=== PATIENT | female | born 1995 | race Caucasian/White ===

== ENCOUNTER 2017-05-30 12:03 | Emergency (ER) | payer MEDICAID ==
[2017-05-30 12:09] VITALS: BP 108/48
--- NOTE | 2017-05-30 12:23 | EDM.PDOC ---
ED HPI GENERAL MEDICAL PROBLEM - General Chief Complaint: General Stated Complaint: head pressure/nausea Time Seen by Provider: 05/30/17 12:10 Source of Information: Reports: Patient History Limitations: Reports: No Limitations - History of Present Illness Onset: Sudden Duration: Day(s): Location: Reports: Head, Face Quality: Reports: Pressure Severity: Moderate Improves with: Reports: None Worsens with: Reports: None Context: Reports: Sick Contact Associated Symptoms: Reports: No Other Symptoms Treatments CONSTRUCTION ESTIMATOR: Reports: Acetaminophen Face Pain Score (Numeric/FACES): 8 - Related Data Allergies Allergy/AdvReac Type Severity Reaction Status Date / Time No Known Allergies Allergy Verified 05/30/17 12:09 Home Meds: Home Meds . [No Known Home Meds] 05/30/17 [History] Past Medical History HEENT History: Reports: Impaired Vision, Other (See Below) Other HEENT History: Wears glasses Cardiovascular History: Reports: None. Denies: Afib, Aneurysm, Arrhythmia, Blood Clots/VTE/DVT, CAD, Heart Failure, Heart Murmur, High Cholesterol, Hypertension, PVD, Syncope Respiratory History: Reports: None. Denies: Asthma, COPD, Intubation, Previous , PE, Pneumothorax, Sleep Apnea Gastrointestinal History: Reports: None. Denies: Celiac Disease, Chronic Constipation, Chronic Diarrhea, Gastritis, GERD, GI Bleed, Hepatitis, Hiatal Hernia, Inflammatory Bowel Disease, Irritable Bowel Syndrome, Jaundice, Pancreatitis, PUD Genitourinary History: Reports: UTI, Recurrent, Other (See Below) Other Genitourinary History: History of vesiculouretal reflux requiring surgery as below CHEMICAL OPERATIONS AND TRAINING History: Reports: , Spontaneous , Other (See Below) Other OB/BYN History: Early with EDC of 12/18/16 with patient 3 para 1011 with SAB in early first trimester not requiring procedure Musculoskeletal History: Reports: Amputation, Other (See Below) Other Musculoskeletal History: 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 Denies: Brain Injury, Cerebral Aneurysms, Concussion, CVA, Headaches, Chronic, Head Trauma, Migraines, Seizure, TIA Psychiatric History: Reports: None. Denies: Abuse, Victim of, ADD, ADHD, Addiction, Anxiety, Dementia, Depression, Psych Hospitalization(s), PTSD, Suicide Attempt, Suicidal Ideation Endocrine/Metabolic History: Reports: None. Denies: Diabetes, Type I, Diabetes , Type II, Hypothyroidism, IDDM Hematologic History: Reports: None. Denies: Anemia, Blood Transfusion(s), Iron Deficiency Immunologic History: Reports: None. Denies: AIDS, HIV Oncologic (Cancer) History: Reports: None Dermatologic History: Reports: Eczema. Denies: Psoriasis - Infectious Disease History Infectious Disease History: Reports: Chicken Pox - Past Surgical History HEENT Surgical History: Reports: None, Oral Surgery, Other (See Below) Female Surgical History: Reports: Other (See Below) Musculoskeletal Surgical History: Reports: Amputation, Other (See Below) - Past Imaging History Past Imaging History: Reports: Ultrasound (Routine OB ultrasounds) Social & Family History - Family History Family Medical History: Noncontributory - Tobacco Use Smoking Status *Q: Never Smoker Used Tobacco, but Quit: No Second Hand Smoke Exposure: No - Caffeine Use Caffeine Use: Reports: Soda (2 sodas per day). Denies: Coffee, Energy Drinks, Tea - Alcohol Use Days Per Week of Alcohol Use: 0 (No previous DWIs, problems with alcohol abuse, etc.) - Recreational Drug Use Recreational Drug Use: No Drug Use in Last 12 Months: No - Living Situation & Occupation Living situation: Reports: Single, with Significant Other Occupation: Employed ED ROS GENERAL - Review of Systems Review Of Systems: See Below HEENT: Reports: Sinus Problem Respiratory: Reports: No Symptoms Cardiovascular: Reports: No Symptoms Endocrine: Reports: No Symptoms GI/Abdominal: Reports: No Symptoms : Reports: No Symptoms Musculoskeletal: Reports: No Symptoms Skin: Reports: No Symptoms Neurological: Reports: No Symptoms Psychiatric: Reports: No Symptoms Hematologic/Lymphatic: Reports: No Symptoms Immunologic: Reports: No Symptoms ED EXAM, GENERAL - Physical Exam Exam: See Below Exam Limited By: No Limitations General Appearance: Alert, WD/WN, No Apparent Distress Ears: Normal External Exam, Normal Canal, Hearing Grossly Normal, Normal TMs Ear Exam: Bilateral Ear: Auricle Normal, Canal Normal, TM normal Nose: Nasal Swelling, Clear Rhinorrhea Throat/Mouth: Normal Inspection, Normal Lips, Normal Teeth, Normal Gums, Normal Oropharynx, Normal Voice, No Airway Compromise Head: Atraumatic, Normocephalic, Facial Swelling Neck: Normal Inspection, Supple, Non-Tender, Full Range of Motion Respiratory/Chest: No Respiratory Distress, Lungs Clear, Normal Breath Sounds, No Accessory Muscle Use, Chest Non-Tender Cardiovascular: Normal Peripheral Pulses, Regular Rate, Rhythm, No Edema, No Gallop, No JVD, No Murmur, No Rub GI/Abdominal: Normal Bowel Sounds, Soft, Non-Tender, No Organomegaly, No Distention, No Abnormal Bruit, No Mass Back Exam: Normal Inspection, Full Range of Motion, NT Extremities: Normal Inspection, Normal Range of Motion, Non-Tender, Normal Capillary Refill, No Pedal Edema Psychiatric: Normal Affect, Normal Mood Skin Exam: Warm, Dry, Intact, Normal Color, No Rash Course - Vital Signs Last Recorded V/S: Last Vital Signs Temp 98.2 F 05/30/17 12:04 Pulse 80 05/30/17 12:04 Resp 20 05/30/17 12:04 BP 108/48 L 05/30/17 12:04 Pulse Ox Departure - Departure Time of Disposition: 12:22 Disposition: Home, Self-Care 01 Clinical Impression: Acute sinusitis - Discharge Information Forms: ED Department Discharge Care Plan Goals: Augmentin 875 twice a day for 10 days ordered patient will be sent home
== END 2017-05-30 12:30 | disposition home or self-care (01) ==
LOC: LL.ED 12:03
DX: J01.90 Acute sinusitis, unspecified (principal); Z87.440 Personal history of urinary (tract) infections; Z89.431 Acquired absence of right foot
CPT/HCPCS: 99283

== ENCOUNTER 2017-10-31 18:37 | Emergency (ER) | payer MEDICAID ==
[2017-10-31 18:41] VITALS: BP 105/71
--- NOTE | 2017-10-31 19:25 | EDM.PDOC ---
ED HPI GENERAL MEDICAL PROBLEM - General Chief Complaint: General Stated Complaint: bilat thigh pain Time Seen by Provider: 10/31/17 19:11 Source of Information: Reports: Patient History Limitations: Reports: No Limitations - History of Present Illness INITIAL COMMENTS - FREE TEXT/NARRATIVE: Patient complains of isolated bilateral anterior thigh pain that started yesterday around 0700. Denies any injuries or changes in activity, such as heavy lifting or new exercising program. No lunges/squatting. Sometimes has tingling feeling in anterior thighs, but non distally. Discomfort is equal bilaterally. No gluteal pain or low back pain. Denies . No history of similar pain. Denies fever/chills/HEENT/Resp/CV/GI/ changes. Discomfort improves at rest. Worse with activity. bilat tops of thighs Pain Score (Numeric/FACES): 8 - Related Data Allergies Allergy/AdvReac Type Severity Reaction Status Date / Time No Known Allergies Allergy Verified 10/31/17 18:49 Home Meds: Home Meds Ibuprofen 400 mg PO Q6HR PRN 10/31/17 [History] Sulfamethoxazole/Trimethoprim [Bactrim Ds Tablet] 1 each PO Q12H #8 tablet 10/31 [Rx] Past Medical History HEENT History: Reports: Impaired Vision, Other (See Below) Other HEENT History: Wears glasses Cardiovascular History: Reports: None Respiratory History: Reports: None Gastrointestinal History: Reports: None Genitourinary History: Reports: UTI, Recurrent, Other (See Below) Other Genitourinary History: History of vesiculouretal reflux requiring surgery as below SASH MAKER History: Reports: , Spontaneous , Other (See Below) Other OB/BYN History: Early with EDC of 12/18/16 with patient 3 para 1011 with SAB in early first trimester not requiring procedure Musculoskeletal History: Reports: Amputation, Other (See Below) Other Musculoskeletal History: 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 Neurological History: Reports: None Psychiatric History: Reports: None Endocrine/Metabolic History: Reports: None Hematologic History: Reports: None Immunologic History: Reports: None Oncologic (Cancer) History: Reports: None Dermatologic History: Reports: Eczema - Infectious Disease History Infectious Disease History: Reports: Chicken Pox - Past Surgical History Head Surgeries/Procedures: Reports: None HEENT Surgical History: Reports: None, Oral Surgery, Other (See Below) Female Surgical History: Reports: Other (See Below) Musculoskeletal Surgical History: Reports: Amputation, Other (See Below) - Past Imaging History Past Imaging History: Reports: Ultrasound (Routine OB ultrasounds) Social & Family History - Family History Family Medical History: Noncontributory - Tobacco Use Smoking Status *Q: Never Smoker Used Tobacco, but Quit: No Second Hand Smoke Exposure: No - Caffeine Use Caffeine Use: Reports: Soda Other Caffeine Use: every other day - Alcohol Use Days Per Week of Alcohol Use: 0 (No previous DWIs, problems with alcohol abuse, etc.) - Recreational Drug Use Recreational Drug Use: No Drug Use in Last 12 Months: No - Living Situation & Occupation Living situation: Reports: Single, with Significant Other Occupation: Employed ED ROS GENERAL - Review of Systems Review Of Systems: See Below Constitutional: Reports: No Symptoms HEENT: Reports: No Symptoms Respiratory: Reports: No Symptoms Cardiovascular: Reports: No Symptoms GI/Abdominal: Reports: No Symptoms : Reports: No Symptoms Musculoskeletal: Reports: Leg Pain (see HPI), Muscle Pain (see HPI). Denies: Neck Pain, Shoulder Pain, Arm Pain, Back Pain, Hand Pain, Foot Pain, Joint Pain , Joint Swelling, Muscle Stiffness Skin: Reports: No Symptoms Neurological: Reports: Tingling (See HPI). Denies: Confusion, Dizziness, Headache, Pre-Existing Deficit, Seizure, Syncope, Tremors, Trouble Speaking, Difficulty Walking, Weakness, Change in Speech, Gait Disturbance Psychiatric: Reports: No Symptoms Hematologic/Lymphatic: Reports: No Symptoms ED EXAM, GENERAL - Physical Exam Exam: See Below Exam Limited By: No Limitations General Appearance: Alert, WD/WN, No Apparent Distress, Other (Observed to change position easily, from laying to sitting to standing and opposite. No obvious signs of pain. ) Eye Exam: Bilateral Eye: EOMI, PERRL Ears: Normal External Exam Nose: No: Nasal Swelling, Nasal Drainage Throat/Mouth: Normal Lips, Normal Voice, No Airway Compromise Head: Atraumatic, Normocephalic Neck: Normal Inspection, Supple, Non-Tender, Full Range of Motion Respiratory/Chest: No Respiratory Distress, Lungs Clear, Normal Breath Sounds, No Accessory Muscle Use Cardiovascular: Normal Peripheral Pulses, Regular Rate, Rhythm, No Murmur GI/Abdominal: Normal Bowel Sounds, Soft, Non-Tender, No Distention (Female) Exam: Deferred Rectal (Female) Exam: Deferred Back Exam: Normal Inspection, Full Range of Motion. No: CVA Tenderness (L), CVA Tenderness (R), Decreased Range of Motion, Muscle Spasm, Paraspinal Tenderness, Vertebral Tenderness Extremities: Normal Range of Motion, No Pedal Edema, Normal Capillary Refill, Other (Subjective tenderness when quads palpated. No TFL tenderss. Hamstrings/ glutes/knees/lower legs nontender. ). No: Shaheen's Sign, Increased Warmth, Mottled, Pallor, Redness Neurological: Alert, Oriented, Normal Cognition, Normal Gait, Other (equal strength bilaterally upper and lower extremities. No focal areas numbness identified at time of exam. ) Psychiatric: Normal Affect, Normal Mood Skin Exam: Warm, Dry, Intact, Normal Color, No Rash Course - Vital Signs Last Recorded V/S: Last Vital Signs Temp 36.7 C 10/31/17 18:39 Pulse 85 10/31/17 18:39 Resp 16 10/31/17 18:39 BP 105/71 10/31/17 18:39 Pulse Ox 100 10/31/17 18:39 - Orders/Labs/Meds Labs: Laboratory Tests 10/31/17 10/31/17 10/31/17 Range/Units 19:23 19:26 19:26 WBC 8.6 (4.0-10.2) K/uL RBC 4.11 (3.77-5.09) M/uL Hgb 12.5 D (11.7-15.5) g/dL Hct 36.5 (34.0-46.0) % MCV 88.8 D (84.0-98.0) fL MCH 30.4 (28.2-33.3) pg MCHC 34.2 (31.7-36.0) g/dL RDW 13.1 (11.2-14.1) % Plt Count 301 D (150-350) K/uL Neut % (Auto) 57.6 (45.0-80.0) % Lymph % (Auto) 33.8 (10.0-50.0) % [place] % (Auto) 5.7 (2.0-14.0) % Eos % (Auto) 2.7 (0.0-5.0) % Baso % (Auto) 0.2 (0.0-2.0) % Neut # (Auto) 4.93 (1.40-7.00) K/uL Lymph # (Auto) 2.90 (0.50-3.50) K/uL [place] # (Auto) 0.49 (0.00-1.00) K/uL Eos # (Auto) 0.23 (0.00-0.50) K/uL Baso # (Auto) 0.02 (0.00-0.20) K/uL Sodium 141 (136-145) mmol/L Potassium 3.8 (3.5-5.1) mmol/L Chloride 104 (98-107) mmol/L Carbon Dioxide 25.7 (21.0-32.0) mmol/L BUN 15 (7-18) mg/dL Creatinine 1.00 (0.51-1.17) mg/dL Est Cr Clr Drug Dosing 67.15 mL/min Estimated GFR (MDRD) > 60 mL/min Glucose 92 (74-106) mg/dL Calcium 8.6 (8.5-10.1) mg/dL Total Bilirubin 0.2 (0.2-1.0) mg/dL AST 7 L (15-37) U/L ALT 16 (12-78) U/L Alkaline Phosphatase 60 (46-116) IU/L Creatine Kinase 189 (26-308) U/L Total Protein 7.2 (6.4-8.2) g/dL Albumin 3.7 (3.4-5.0) g/dL Specimen Type Urinblad Urine Color Yellow Urine Appearance Cloudy Urine pH 6.0 (5.0-9.0) Ur Specific [place] >= 1.030 (1.005-1.030) Urine Protein Negative (NEGATIVE) mg/dL Urine Glucose (UA) Negative (NEGATIVE) mg/dL Urine Ketones Negative (NEGATIVE) mg/dL Urine Occult Blood Negative (NEGATIVE) Urine Nitrite Positive H (NEGATIVE) Urine Bilirubin Negative (NEGATIVE) Urine Urobilinogen 2.0 H (0.2-1.0) E.U./dL Ur Leukocyte Esterase Small H (NEGATIVE) Urine RBC 0-5 /HPF Urine WBC Packed /HPF Ur Epithelial Cells Moderate H /LPF Urine Bacteria Many H (NONE TO FEW) /HPF - Re-Assessments/Exams Free Text/Narrative Re-Assessment/Exam: 10/31/17 19:29 Patient complaint and exam suggested focal muscle tenderness involving bilateral quadriceps only. No specific trigger for such discomfort identified. Patient observed to move easily however, no physical signs of pain/grimace when asked to move/change position or when area of concern was examined or palpated. Basic labs ordered. 10/31/17 21:59 UA + for UTI. Culture ordered. CBC/Chem/CK unremarkable. Will place patient on Bactrim. First doses dispensed from ER. RX for remainder of course of treatment given. Patient has had frequent UTIs in past and is familiar with treating them. She had no further questions. Will contact patient if C&S indicate infection resistant to Bactrim. Departure - Departure Time of Disposition: 19:55 Disposition: Home, Self-Care 01 Condition: Good Clinical Impression: UTI, Urinary tract infectious disease - Discharge Information Prescriptions: Sulfamethoxazole/Trimethoprim [Bactrim Ds Tablet] 1 each PO Q12H #8 tablet Instructions: Urinary Tract Infection, Adult, Sulfamethoxazole; Trimethoprim, SMX-[id number] tablets Referrals: PCP,Unknown [Primary Care Provider] - Forms: ED Department Discharge Additional Instructions: Take antibiotics one every 12 hours. Watch for any changes. Follow up for repeat UA at clinic Thursday or Thursday to make sure infection is improving. Follow up otherwise as needed if you have problems.
[2017-10-31 19:58] LABS: CHLORIDE,CL 104 mmol/L (98-107); SODIUM,NA 141 mmol/L (136-145)
== END 2017-10-31 20:05 | disposition home or self-care (01) ==
LOC: LL.ED 18:37
DX: N39.0 Urinary tract infection, site not specified (principal); M79.652 Pain in left thigh; M79.651 Pain in right thigh
CPT/HCPCS: 36415; 80053; 81001; 82550; 85025; 87086; 87088; 87186; 99283